=== PATIENT | female | born 1960 | race Caucasian/White ===

== ENCOUNTER 2023-02-08 14:41 | Emergency (ER) | payer OTHER ==
[2023-02-08] MEDS ORDERED: KETOROLAC TROMETHAMINE 30 MG/1 ML VIAL IM ONE (15:01)
[2023-02-08] MEDS ORDERED: KETOROLAC TROMETHAMINE 30 MG/1 ML VIAL ONE (15:28)
[2023-02-08 15:31] VITALS: BP 124/64; PULSE 73; RESP 16; TEMP 98.5; BMI 39.8
[2023-02-08 15:45] LABS: EPITHELIAL CELLS FEW /hpf
[2023-02-08] MEDS ORDERED: CYCLOBENZAPRINE HCL 10 MG TABLET (FP) PO ONE ×3 (18:08→18:10)
[2023-02-08] MEDS ORDERED: CYCLOBENZAPRINE HCL 5 MG TABLET ONE (18:12)
== END 2023-02-08 18:27 | disposition home or self-care (01) ==
LOC: FER 14:41
PROC: 3E0233Z Introduction of Anti-inflammatory into Muscle, Percutaneous Approach (ICD-10-PCS; principal; 2023-02-08)
DX: M54.50 Low back pain, unspecified (principal)
CPT/HCPCS: 74176-TC; 81003; 81015; 87086; 99284-25